=== PATIENT | female | born 1985 | race Caucasian/White ===

== ENCOUNTER → 2025-01-04 12:39 | Outpatient (REF) | payer BC, SELFPAY | LOC: HWRAD 12:39 | PROVIDERS: ATTENDING PHYSICIAN Obstetrics & Gynecology; FAMILY PHYSICIAN Nurse Practitioner Family | DX: R10.2 Pelvic and perineal pain (principal) | CPT/HCPCS: 76830; 76856 ==

== ENCOUNTER → 2025-02-14 13:44 | Outpatient (REF) | payer BC, SELFPAY | LOC: CPAP 13:44 | PROVIDERS: ATTENDING PHYSICIAN Obstetrics & Gynecology | DX: Z87.410 Personal history of cervical dysplasia (principal) | CPT/HCPCS: 87624 ==